=== PATIENT | male | born 1980 | race Caucasian/White ===

== ENCOUNTER 2017-06-26 22:03 | Emergency (ER) | payer SELFPAY ==
[~2017-06-26] VITALS: Ht 162.6 cm; Wt 72.5 kg
[~2017-06-26 22:03] MED LIST: IBUP-1542 PO
[2017-06-26 22:07] VITALS: Ht 162.6 cm; Wt 72.5 kg
[2017-06-27] MEDS ORDERED: TETRACAINE 0.5% 4 ML OPH BOTH EYES ONE
[2017-06-27] MEDS ORDERED: FLUORESCEIN STRIP RIGHT EYE ONE
[2017-06-27] MEDS ORDERED: FLUORESCEIN STRIP LEFT EYE ONE
[2017-06-27] MEDS ORDERED: IBUP800T25 PO (00:34)
[2017-06-27 00:45] VITALS: BP 136/89; PULSE 72; RESP 16
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
== END 2017-06-27 00:45 | disposition home or self-care (01) ==
LOC: FTE 22:03
DX: H11.33 Conjunctival hemorrhage, bilateral (principal); R40.2412 Glasgow coma scale score 13-15, at arrival to emergency department; S00.12XA Contusion of left eyelid and periocular area, initial encounter; Y08.89XA Assault by other specified means, initial encounter; Y92.9 Unspecified place or not applicable
CPT/HCPCS: 99283